=== PATIENT | female | born 2000 | race Caucasian/White ===

== ENCOUNTER 2020-09-01 16:02 | Emergency (ER) | payer SELFPAY ==
[~2020-09-01] VITALS: Ht 165.1 cm; Wt 55.1 kg
[2020-09-01 16:04] VITALS: BP 129/73
== END 2020-09-01 17:00 | disposition home or self-care (01) ==
LOC: ED 16:34
DX: J34.89 Other specified disorders of nose and nasal sinuses (principal); F17.210 Nicotine dependence, cigarettes, uncomplicated
CPT/HCPCS: 99283; 99406